=== PATIENT | male | born 1950 | race Caucasian/White ===

== ENCOUNTER 2017-10-24 13:51 | Inpatient (IN) | END 2017-11-14 17:00 | disposition home health service (06) | DRG 233 ==

== ENCOUNTER 2017-12-24 08:52 | Emergency (ER) | END 2017-12-24 10:50 | disposition home or self-care (01) ==

== ENCOUNTER 2018-05-29 23:37 | Observation (INO) | END 2018-05-30 20:20 | disposition home or self-care (01) ==

== ENCOUNTER 2018-06-26 19:46 | Observation (INO) | payer OTHER ==
[~2018-06-26] VITALS: Ht 182.9 cm; Wt 78.6 kg
[~2018-06-26 19:46] MED LIST: ASPI-831 PO; ATOR20TA38 PO; FURO40TA4 PO; LEVO200T6 PO; LISI-471 PO; METO-448 PO; OMEP20CA16 PO; TAMS0.4C2 PO
[2018-06-26 20:35] VITALS: Ht 182.9 cm; Wt 78.6 kg
--- NOTE | 2018-06-27 03:02 | ERD ---
ER Documentation Chief Complaint Chief Complaint incision site drainage w/serosanguinous fluid HPI This is a 67-year-old male comes in with complaints of serosanguineous fluid drainage from previous surgical site. Was seen here previously for same last month and a questionable carcinomatosis. Complains of some mild pain at the site. No nausea no vomiting or chills. No other current complaints. ROS All systems reviewed and are negative except as per history of present illness. Medications Home Meds Active Scripts Furosemide* (Furosemide*) 40 Mg Tablet, 40 MG PO DAILY, #30 TAB Prov:JOSTIN GALLARDO TOWER ATTENDANT 11/14/17 Aspirin (Aspirin) 81 Mg Chew, 81 MG PO DAILY, #30 TAB Prov:JOSTIN GALLARDO TOWER ATTENDANT 11/14/17 Metoprolol Tartrate* (Lopressor*) 25 Mg Tab, 25 MG PO BID, #60 TAB Prov:JOSTIN GALLARDO TOWER ATTENDANT 11/14/17 Reported Medications Atorvastatin Calcium* (Atorvastatin Calcium*) 20 Mg Tablet, 20 MG PO QHS, #30 TAB 05/29/18 Lisinopril* (Lisinopril*) 20 Mg Tablet, 20 MG PO DAILY, #30 TAB 05/29/18 Levothyroxine Sodium* (Levothyroxine Sodium*) 200 Mcg Tablet, 200 MCG PO BEFORE BREAKFAST, #30 TAB 05/29/18 Discontinued Reported Medications Omeprazole* (Omeprazole*) 20 Mg Capsule.dr, 20 MG PO DAILY, #30 CAP 05/29/18 Tamsulosin Hcl* (Tamsulosin Hcl*) 0.4 Mg Cap.er.24h, 0.4 MG PO HS, CAP 05/29/18 Allergies Allergies: Coded Allergies: No Known Allergies (Verified Allergy, Unknown, 06/26/18) PMhx/Soc History of Surgery: Yes (Cholesystectomy 01/19 & Open heart Surgery 11/19) Anesthesia Reaction: No Hx Neurological Disorder: No Hx Respiratory Disorders: No Hx Cardiac Disorders: Yes (CAD, HTN, DC) Hx Psychiatric Problems: No Hx Miscellaneous Medical Probl: No Hx Alcohol Use: No Hx Substance Use: No Hx Tobacco Use: No Smoking Status: Never smoker Physical Exam Vitals Vital Signs Date Temp Pulse Resp B/P (MAP) Pulse Ox O2 O2 Flow FiO2 Time Delivery Rate 06/26/18 98.2 62 18 181/89 100 20:35 (119) Physical Exam Const: No acute distress Head: Atraumatic Eyes: Normal Conjunctiva ENT: Normal External Ears, Nose and Mouth. Neck: Full range of motion. No meningismus. Resp: Clear to auscultation bilaterally Cardio: Regular rate and rhythm, no murmurs Abd: Soft, non tender, non distended. Normal bowel sounds Skin: No petechiae or rashes Back: No midline or flank tenderness Ext: No cyanosis, or edema Neur: Awake and alert Psych: Normal Mood and Affect Procedures/MDM Medical decision makin-year-old male who looks to be extension of previous carcinomatosis. Patient will be admitted. Consult put into anu Wheeler ed to hospitalist. Departure Diagnosis: Primary Impression: Postoperative complication Surgical complication system/body Area: skin Surgical complication type: unspecified Procedure type: non-dermatologic Qualified Codes: L76.82 - O ther postprocedural complications of skin and subcutaneous tissue Condition: Serious JANEY BISHOP Jun 27, 2018 03:02
--- NOTE | 2018-06-27 04:35 | HP ---
Date/Time of Note Date/Time of Note DATE: 06/27/18 TIME: 04:28 Assessment/Plan VTE Prophylaxis SCD applied (from Nsg): Yes Pharmacological prophylaxis: NA/contraindicated Pharm contraindication: low risk/ambulating Lines/Catheters IV Catheter Type (from Nrsg): Saline Lock Assessment/Plan Hospital Course This is a 67-year-old male being admitted to the [facility] floor for: #1 postop drainage from surgical site: Patient has serosanguineous drainage from previous cholecystostomy drain site. Though I do not see any gallstones at the current time patient does report that he may have noted some. We will keep the patient n.p.o. at the current time, IV hydration with normal saline, surgical consult is Campbell been placed by the ED with Dr. Bauer. #[address] scan: Peritoneal carcinomatosis with slight increase from 05/29/2018.Infiltrating process involving the muscles of the right lateral abdominal wall with increased soft tissue stranding in the overlying subcutaneous fat. This may represent extension of peritoneal disease into the overlying muscle. Muscle changes could also be secondary to a very recent image- guided percutaneous biopsy of the peroneal disease. Punctate nonobstructing left renal stones. Very small focus of gas in the inferior stephanie hepatis, new. This could follow a very recent percutaneous biopsy, represent volume averaging artifact from tethering of the wall of the hepatic flexure which is immediately adjacent or minimal pneumobilia as the gas collection is slightly inferior to cholecystectomy clips. At the current time we will keep the patient n.p.o., prophylactic antibiotics, general surgery consultation with Dr. Bauer is Campbell been placed. #3 multivessel CAD. Status post CABG x3, CAO to LAD, SVG to PDA, SVG to second obtuse marginal artery, endoscopic vein harvesting, and epiaortic scanning of the ascending aorta on 10/25/2017. #4 history of gallbladder disease/gallstones: Patient is status post percu taneous cholecystostomy as well as cholecystectomy. #5 dyslipidemia.: Continue statin #6 hypothyroidism: We will check TSH, resume levothyroxine #7: Hypertension resume patient's home medications #8 DVT GI prophylaxis: SCDs, no GI prophylaxis indicated further treatment strategy will be implemented as per the clinical course. Result Diagram: 06/27/18 0309 06/27/18 0309 Results 24hrs Laboratory Tests Test 06/27/18 03:09 White Blood Count 7.8 Red Blood Count 4.47 L Hemoglobin 10.8 L Hematocrit 36.5 L Mean Corpuscular Volume 81.7 L Mean Corpuscular Hemoglobin 24.2 L Mean Corpuscular Hemoglobin Concent 29.6 L Red Cell Distribution Width 17.1 H Platelet Count 311 Mean Platelet Volume 9.7 Immature Granulocytes % 0.400 Neutrophils % 58.7 Lymphocytes % 30.4 Monocytes % 7.3 Eosinophils % 2.4 Basophils % 0.8 Nucleated Red Blood Cells % 0.0 Immature Granulocytes # 0.030 Neutrophils # 4.6 Lymphocytes # 2.4 Monocytes # 0.6 Eosinophils # 0.2 Basophils # 0.1 Nucleated Red Blood Cells # 0.0 Prothrombin Time 14.2 Prothrombin Time Ratio 1.1 INR International Normalized Ratio 1.09 Activated Partial Thromboplast Time 32.6 Sodium Level 146 H Potassium Level 4.1 Chloride Level 108 Carbon Dioxide Level 26 Anion Gap 12 Blood Urea Nitrogen 20 Creatinine 1.13 Est Glomerular Filtrat Rate mL/min > 60 Glucose Level 103 Calcium Level 9.4 Total Bilirubin 0.1 L Direct Bilirubin 0.00 Indirect Bilirubin 0.1 Aspartate Amino Transf (AST/SGOT) 22 Alanine Aminotransferase (ALT/SGPT) 11 L Alkaline Phosphatase 170 H Total Protein 8.1 Albumin 4.2 Globulin 3.90 H Albumin/Globulin Ratio 1.07 Lipase 187 HPI/ROS Admit Date/Time Admit Date/Time Hx of Present Illness Chief complaint: Drainage coming out of previous cholecystostomy drain site This is a 67-year-old male status post percutaneous cholecystostomy tube and cholecystectomy presenting with 1 day of drainage from the previous cholecystostomy drain site. Patient reports that over the last 1 day he has noticed abdominal pain of the right abdomen near the site of his previous cholecystostomy drain site. He reports serosanguineous drainage and possible stones as well. He does have tenderness at the surgical site. Denies any fevers chills or nausea or vomiting. Allergies: NKDA Medications: See AUG ROS Const: As per HPI Eyes : No pain discharge or redness or change in visual acuity ENT: No pain, sore throat, congestion, congestion, dysphagia or discharge Respiratory: No shortness of breath, cough, sputum, wheezing, or pleuritic pain Cardiovascular: No chest pain, palpitation, PND, or edema GI : As per HPI Genitourinary: No dysuria, no hematuria Musculoskeletal: No joint pain, back pain, neck pain, restricted range of motion in neck or joints Skin: No rash, bruising or hives Neuro: No headache, dizziness, syncope, seizure, focal weakness Endocrine: No polyuria, polydipsia, temperature intolerance Psych: No hallucination, depression, anxiety or suicidal ideation PMH/Family/Social Past Medical History Coronary artery disease status post CABG, hyperlipidemia, hypertension, hypothyroidism, BPH, GERD Coded Allergies: No Known Allergies (Verified Allergy, Unknown, 06/26/18) Past Surgical History CABG, cholecystectomy, percutaneous cholecystostomy insertion/removal, Past Surgical Hx: other Family History Significant Family History: no pertinent family hx, other Social History Alcohol Use: none Smoking Status: Former smoker Drug Use: none Exam/Review of Systems Vital Signs Vitals Vital Signs Date Temp Pulse Resp B/P (MAP) Pulse Ox O2 O2 Flow FiO2 Time Delivery Rate 06/27/18 56 151/83 97 Room Air 03:07 (105) 06/27/18 20 01:00 06/26/18 98.2 20:35 Exam Exam General: Patient is a pleasant male currently lying in bed in no acute distress The patient is alert oriented -3 lying comfortably in bed. HEENT: Atraumatic, normocephalic. The pupils are equal, round and reactive. Extraocular motor are intact Neck: Supple with full range of motion. No rigidity or meningismus Chest: Surgical scars present from CABG Lungs: Clear to auscultation bilaterally no crackles rales or wheezing Heart: Normal S1-S2, Regular rhythm and rate. No murmur, S3, or S4 Abdomen: Soft, mild tenderness palpation of the right lower abdomen catheter drainage site. There appears to be a scant amount of serosanguineous liquid draining. Neurologic: Normal mental status, speech normal, cranial nerves II through XII are intact, motor and sensory are intact, no focal weakness Additional Comments PROCEDURE: CT abdomen and pelvis without contrast. CLINICAL INDICATION: 67-year-old male with abdominal pain. TECHNIQUE: CT scan of the abdomen and pelvis without contrast was performed on a multi-slice CT scanner utilizing axial imaging from the lung bases through the pubis symphysis. One or more the following does reduction techniques were utilized: Automated exposure control, adjustment of the mA/ or kV according to patient's size, or use of iterative reconstruction technique. Sagittal and coronal reformatted images were made. DICOM images are available for review. The CTDIvol is 9.42 mGy and the DLP is 604.89 mGycm. COMPARISON: CT abdomen pelvis 05/29/2018. FINDINGS: CT abdomen Visualized lung bases: Dependent changes posterior lower lobes. No pleural effusion. No significant pericardial effusion. Liver: Limited evaluation without IV contrast. No gross lesion. Gallbladder and bile ducts: Previous cholecystectomy. Small focus of gas identified in the inferior stephanie hepatis (series 3 image 55, series 601 image 41). No biliary ductal dilatation. Spleen: Normal appearance. Pancreas: Normal appearance. No ductal dilatation. No mass. No peripancreatic stranding. Adrenal glands: Normal appearance. Kidneys: No hydronephrosis. 2 mm nonobstructing stone upper pole left kidney. 1.5 mm nonobstructing stone lower pole left kidney. No right renal calcifications. Vasculature: No abdominal aortic aneurysm. Calcified plaque present. Negative IVC. Lymph nodes: No adenopathy. GI: No evidence of obstruction or bowel wall thickening. Peritoneal cavity: . Panic fluid that was present on the previous exam has cleared. Multiple soft tissue masses are present with in the omentum and the mesenteric fat of the right abdomen. There is also abnormal soft tissue stranding in the fat of the lateral right abdomen. Abdominal wall: Asymmetric thickening of the right anterolateral mid abdominal muscles with low attenuation changes infiltrating the planes between the muscles and also developing in the external oblique, transversalis and internal oblique muscles. Abnormal soft tissue stranding in the subcutaneous fat of the lateral right abdomen. CT pelvis GI: Negative terminal ileum. Negative appendix. Negative sigmoid colon. Negative rectum. : Genitourinary structures are unremarkable. Peritoneal cavity: Minimal free fluid posterior inferior right pelvis, new. Probable scarring at the level left inguinal canal, present on the prior exam. Peritoneal nodule identified in the midline of the pelvis slightly to the right of midline (series 3 image 119), new. Lymph nodes: No adenopathy. Osseous structures: No lytic or blastic lesions. Multilevel thoracic and lumbar spondylosis. Sternal wire sutures. IMPRESSION: 1. Peritoneal carcinomatosis with slight increase from 05/29/2018. 2. Infiltrating process involving the muscles of the right lateral abdominal wall with increased soft tissue stranding in the overlying subcutaneous fat. This may represent extension of peritoneal disease into the overlying muscle. Muscle changes could also be secondary to a very recent image-guided per cutaneous biopsy of the peroneal disease. 3. Punctate nonobstructing left renal stones. 4. Very small focus of gas in the inferior stephanie hepatis, new. This could follow a very recent percutaneous biopsy, represent volume averaging artifact from tethering of the wall of the hepatic flexure which is immediately adjacent or minimal pneumobilia as the gas collection is slightly inferior to cholecyst ectomy clips. RPTAT: HLRS Physician Grant Date Time Electronically viewed and signed by Physician Grant on 06/27/2018 01:13 RS/ CC: JANEY BISHOP [id number] NIRAV PHILLIPS Jun 27, 2018 04:35
[2018-06-27] MEDS ORDERED: morphine 2 MG INJ IV PRN (05:00)
[2018-06-27] MEDS ORDERED: DOCUSATE SODIUM 100 MG CAP PO PRN (05:00)
[2018-06-27] MEDS ORDERED: ONDANSETRON 4 MG INJ IV PRN (05:00)
[2018-06-27] MEDS ORDERED: BISACODYL (EC) 5 MG TAB PO PRN (05:00)
[2018-06-27] MEDS ORDERED: ACETAMINOPHEN 325 MG TAB PO PRN (05:00)
[2018-06-27] MEDS ORDERED: NACL 0.9% 3 ML SYG IV SCH (05:00)
[2018-06-27] MEDS: SOD CHLORIDE 0.9% 1,000 ML IV SCH ×2 (05:21→17:32)
[2018-06-27] MEDS: PIPER-TAZO 3.375 GM IV (PMX) 100 ML IVPB SCH ×3 (06:33→17:32)
[2018-06-27 08:13] VITALS: BP 144/93; PULSE 18; RESP 18
--- NOTE | 2018-06-27 10:08 | CONS ---
Date/Time of Note Date/Time of Note DATE: 06/27/18 TIME: 10:03 Assessment/Plan Assessment/Plan Assessment/Plan The patient's issue of drainage can be handled with warm compresses, and dressing care. Plan: Oncologic consultation for further recommendations. Result Diagram: 06/27/18 0309 06/27/18 0309 Results 24hrs Laboratory Tests Test 06/27/18 03:09 White Blood Count 7.8 Red Blood Count 4.47 L Hemoglobin 10.8 L Hematocrit 36.5 L Mean Corpuscular Volume 81.7 L Mean Corpuscular Hemoglobin 24.2 L Mean Corpuscular Hemoglobin Concent 29.6 L Red Cell Distribution Width 17.1 H Platelet Count 311 Mean Platelet Volume 9.7 Immature Granulocytes % 0.400 Neutrophils % 58.7 Lymphocytes % 30.4 Monocytes % 7.3 Eosinophils % 2.4 Basophils % 0.8 Nucleated Red Blood Cells % 0.0 Immature Granulocytes # 0.030 Neutrophils # 4.6 Lymphocytes # 2.4 Monocytes # 0.6 Eosinophils # 0.2 Basophils # 0.1 Nucleated Red Blood Cells # 0.0 Prothrombin Time 14.2 Prothrombin Time Ratio 1.1 INR International Normalized Ratio 1.09 Activated Partial Thromboplast Time 32.6 Sodium Level 146 H Potassium Level 4.1 Chloride Level 108 Carbon Dioxide Level 26 Anion Gap 12 Blood Urea Nitrogen 20 Creatinine 1.13 Est Glomerular Filtrat Rate mL/min > 60 Glucose Level 103 Calcium Level 9.4 Total Bilirubin 0.1 L Direct Bilirubin 0.00 Indirect Bilirubin 0.1 Aspartate Amino Transf (AST/SGOT) 22 Alanine Aminotransferase (ALT/SGPT) 11 L Alkaline Phosphatase 170 H Total Protein 8.1 Albumin 4.2 Globulin 3.90 H Albumin/Globulin Ratio 1.07 Lipase 187 Consultation Date/Type/Reason Admit Date/Time Date of Consultation: Jun 27, 2018 Type of Consult General surgery Reason for Consultation Induration and drainage from laparoscopic port site. CT scan indicates worsened carcinomatosis Hx of Present Illness The patient is a 67-year-old male who underwent a laparoscopic cholecystectomy on November 2017. Since that time he has had localized wound care issues including drainage as well as some drainage of stones through the drain site. He was seen last month for wound drainage and was found to carcinomatosis. The etiology is unclear. Sequently he did well and went to [place] for vacation. The day before yesterday started to develop drainage through the right lateral port site and drove himself directly to the hospital. Here in the hospital induration and drainage was noted at the lateral port site. CT scan showed carcinomatosis which was worsened. The patient has full p.o. tolerance and normal bowel function. Constitutional: no complaints Eyes: no complaints ENT: no complaints Respiratory: no complaints Cardiovascular: no complaints Gastrointestinal: pain, decreased appetite Genitourinary: no complaints Musculoskeletal: no complaints Skin: no complaints Neurologic: no complaints Endocrine: no complaints Psychological: no complaints Past Medical History Medical History: gallstones (Cystectomy) Medications Current Medications Sodium Chloride 1,000 ml @ 80 mls/hr [id number] IV Last administered on 06/27/18at 05:21; Admin Dose 80 MLS/HR; Start 06/27/18 at 04:35 IV Flush (NS 3 ml) 3 ml PER PROTOCOL IV ; Start 06/27/18 at 05:00 Ondansetron HCl (Zofran Inj) 4 mg Q6H PRN IV NAUSEA; Start 06/27/18 at 05:00 Acetaminophen (Tylenol Tab) 650 mg Q6H PRN PO FEVER GREATER THAN 100.6; Start 06/27/18 at 05:00 Morphine Sulfate (morphine) 2 mg Q4H PRN IV PAIN LEVEL 6-10; Start 06/27/18 at 05:00 Docusate Sodium (Colace) 100 mg Q12H PRN PO CONSTIPATION; Start 06/27/18 at 05:00 Bisacodyl (Dulcolax) 5 mg DAILY PRN PO CONSTIPATION; Start 06/27/18 at 05:00 Piperacillin Sod/ Tazobactam Sod 100 ml @ 200 mls/hr Q6 IVPB Last administered on 06/27/18at 06:33; Admin Dose 200 MLS/HR; Start 06/27/18 at 06:00 Allergies: Coded Allergies: No Known Allergies (Verified Allergy, Unknown, 06/26/18) Past Surgical History Past Surgical Hx: other Family History Significant Family History: no pertinent family hx Social History Alcohol Use: none Smoking Status: Former smoker Drug Use: none Exam/Review of Systems Vital Signs Vitals Vital Signs Date Temp Pulse Resp B/P (MAP) Pulse Ox O2 O2 Flow FiO2 Time Delivery Rate 06/27/18 98.0 18 18 144/93 100 Room Air 08:13 (110) Exam Constitutional: alert, oriented Psych: no complaints Head: normocephalic ENMT: nl external ears & nose Neck: supple Respiratory: clear to auscultation Cardiovascular: regular rate and rhythm Gastrointestinal: soft, distended, other (There is a 3 cm area of induration at the lateral scopic port site with signs of recent drainage. There is nonspecific nominal fullness) Genitourinary - Male: nl penis Extremities: normal pulses Neurological: INDUSTRIAL TRAINER II-XII intact Medications Medications Current Medications Sodium Chloride 1,000 ml @ 80 mls/hr [id number] IV Last administered on 06/27/18at 05:21; Admin Dose 80 MLS/HR; Start 06/27/18 at 04:35 IV Flush (NS 3 ml) 3 ml PER PROTOCOL IV ; Start 06/27/18 at 05:00 Ondansetron HCl (Zofran Inj) 4 mg Q6H PRN IV NAUSEA; Start 06/27/18 at 05:00 Acetaminophen (Tylenol Tab) 650 mg Q6H PRN PO FEVER GREATER THAN 100.6; Start 06/27/18 at 05:00 Morphine Sulfate (morphine) 2 mg Q4H PRN IV PAIN LEVEL 6-10; Start 06/27/18 at 05:00 Docusate Sodium (Colace) 100 mg Q12H PRN PO CONSTIPATION; Start 06/27/18 at 05:00 Bisacodyl (Dulcolax) 5 mg DAILY PRN PO CONSTIPATION; Start 06/27/18 at 05:00 Piperacillin Sod/ Tazobactam Sod 100 ml @ 200 mls/hr Q6 IVPB Last administered on 06/27/18at 06:33; Admin Dose 200 MLS/HR; Start 06/27/18 at 06:00 MILANA SALAMANCA MD Jun 27, 2018 10:08
[2018-06-27] MEDS ORDERED: LIDOCAINE 1% (MPF) 5 ML VIAL ONE (13:26)
[2018-06-27 14:58] VITALS: BP 154/77; PULSE 78; RESP 20
[2018-06-27 15:03] VITALS: BP 154/77; PULSE 52; RESP 18
--- NOTE | 2018-06-27 15:04 | NUR ---
Patient came back from Radiology S/P Right upper quadrant biopsy as per report. Patient noted with bandaid to right upper quadrant of abdomen clean, dry and intact with gauze also intact beside the biopsy site. Fall precaution. Patient reoriented back to floor. call light kept in reach.
--- NOTE | 2018-06-27 19:48 | NUR ---
END OF SHIFT REPORT: Patient denied pain throughout shift. Patient went down for CT-guided biopsy; patient has bandaid on boipsy site that is dry and intact. Patient has lower right abdominal wound that appears to have a large rounded lump around site draining yellowish liquid with no order; I order k-pad according to Juancarlos TRAN order for warm compress TID. Patient had no other events noted and tolerating regular diet. Patient voiding in urinal with no difficulty.
[2018-06-27 20:08] VITALS: BP 133/73; PULSE 65; RESP 16
[2018-06-28] MEDS: PIPER-TAZO 3.375 GM IV (PMX) 100 ML IVPB SCH ×5 (01:38→23:31)
[2018-06-28 02:04] VITALS: BP 135/67; PULSE 63; RESP 18
[2018-06-28] MEDS: SOD CHLORIDE 0.9% 1,000 ML IV SCH ×2 (06:16→22:37)
--- NOTE | 2018-06-28 06:33 | NUR ---
RN EOSS NOTES: Patient has slept well overnight. Denies any pain nor discomfort from abdominal wound. Biopsy site to RUQ of abdomen has a band-aid, and abdominal wound has a gauze dressing which remains C/D/I. Afebrile, ambulates with steady gait in his room this shift. Heating pad applied once over abdominal wound last night with good effect for comfort. Awaiting consult with Dr. Rome. Needs assisted.
[2018-06-28 07:21] VITALS: BP 143/62; PULSE 73; RESP 19
--- NOTE | 2018-06-28 09:17 | CONS ---
Assessment/Plan Assessment/Plan Assessment/Plan (Daily) 67 yo male who 4 months ago underwent cholecystectomy which was complicated by infection. Pt then underwent percutaneous cholecystostomy tube and now presents with drainage from that site. 06/26/[address] A/P done which revealed peritoneal carcinomatosis with slight increase from 05/29/2018. We have been consulted given concern for underlying malignancy. Pt has since undergone a biopsy of a right flank mass. PT has since been seen by surgery who stated the drainage could be managed conserva tively. PT is currently on Zosyn. #Peritoneal carcinomatosis -CT revealed this was slightly increased from 05/29/2018 as well as an infiltrating process involving the muscles of the right lateral abdominal wall. The mass has since been biopsied. Will follow up results -CA 19-9 and CEA have been ordered as well #post op drainage from cholecystostomy site -conservative management per surgery #CAD -s/p CABG -continue current meds #Hypothyroidism -continue Lt4 Consultation Date/Type/Reason Admit Date/Time Jun 27, 2018 at 02:25 Initial Consult Date 06/27/18 Type of Consult oncology Reason for Consultation peritoneal carcinomatosis Requesting Provider: GILBERT WEIR Date/Time of Note DATE: 06/28/18 TIME: 09:12 24 HR Interval Summary Free Text/Dictation 67 yo male who 4 months ago underwent cholecystectomy which was complicated by infection. Pt then underwent percutaneous cholecystostomy tube and now presents with drainage from that site. 06/26/[address] A/P done which revealed peritoneal carcinomatosis with slight increase from 05/29/2018. We have been consulted given concern for underlying malignancy. Pt has since undergone a biopsy of a right flank mass. PT has since been seen by surgery who stated the drainage could be managed conservatively. PT is currently on Zosyn. Exam/Review of Systems Exam Vitals Vital Signs Date Temp Pulse Resp B/P (MAP) Pulse Ox O2 O2 Flow FiO2 Time Delivery Rate 06/28/18 98.2 73 19 143/62 96 07:21 (89) 06/27/18 Room Air 15:03 Intake and Output 06/27/18 06/27/18 06/28/18 1515:00 23:00 07:00 IntakeIntake Total 100 ml 1180 ml 2030 ml OutputOutput Total 300 ml 1200 ml BalanceBalance -200 ml 1180 ml 830 ml Constitutional: alert, oriented Psych: anxiety, depression Head: normocephalic Eyes: nl conjunctiva ENMT: nl external ears & nose Neck: supple Respiratory: clear to auscultation Cardiovascular: regular rate and rhythm Gastrointestinal: soft Musculoskeletal: nl extremities to inspection Extremities: normal pulses Results Result Diagram: 06/28/18 0433 06/28/18 0433 Results 24hrs Laboratory Tests Test 06/28/18 04:33 White Blood Count 7.3 Red Blood Count 4.16 L Hemoglobin 10.1 L Hematocrit 34.0 L Mean Corpuscular Volume 81.7 L Mean Corpuscular Hemoglobin 24.3 L Mean Corpuscular Hemoglobin Concent 29.7 L Red Cell Distribution Width 17.3 H Platelet Count 302 Mean Platelet Volume 10.5 H Immature Granulocytes % 0.400 Neutrophils % 64.1 Lymphocytes % 25.0 Monocytes % 7.4 Eosinophils % 2.3 Basophils % 0.8 Nucleated Red Blood Cells % 0.0 Immature Granulocytes # 0.030 Neutrophils # 4.6 Lymphocytes # 1.8 Monocytes # 0.5 Eosinophils # 0.2 Basophils # 0.1 Nucleated Red Blood Cells # 0.0 Sodium Level 145 H Potassium Level 4.7 Chloride Level 109 Carbon Dioxide Level 28 Anion Gap 8 Blood Urea Nitrogen 18 Creatinine 1.26 H Est Glomerular Filtrat Rate mL/min 57 L Glucose Level 112 Calcium Level 9.1 Magnesium Level 2.2 Total Bilirubin 0.1 L Direct Bilirubin 0.00 Indirect Bilirubin 0.1 Aspartate Amino Transf (AST/SGOT) 17 Alanine Aminotransferase (ALT/SGPT) 17 Alkaline Phosphatase 139 H Total Protein 6.5 # Albumin 3.4 Globulin 3.10 Albumin/Globulin Ratio 1.09 TITUS OBRIEN M.D. Jun 28, 2018 09:17
--- NOTE | 2018-06-28 13:41 | QN ---
Documentation Comment Patient feels well overall The indurated port site in the right abdomen is less firm and erythematous and still is draining slightly CT-guided biopsy is thus far nondiagnostic for malignancy. Awaiting further staining and evaluation MILANA SALAMANCA MD Jun 28, 2018 13:41
--- NOTE | 2018-06-28 19:18 | NUR ---
EOSS; PATIENT WITH NO SIGNIFICANT CHANGE OF CONDITION DURING THE SHIFT. NO ABDOMINAL DRAINAGE NOTED. AFEBRILE, VITAL SIGNS STABLE. CONTINUED ON ANTIBIOTICS OF ZOSYN. KEPT CLEAN DRY AND COMFORTABLE. NEEDS ATTENDED.
[2018-06-28 19:30] VITALS: BP 120/87; PULSE 64; RESP 18
[2018-06-29 02:30] VITALS: BP 131/72; PULSE 62; RESP 18
--- NOTE | 2018-06-29 05:37 | QN ---
Documentation Comment No significant change Awaiting final pathology report May ultimately need open biopsy MILANA SALAMANCA MD Jun 29, 2018 05:37
[2018-06-29] MEDS: PIPER-TAZO 3.375 GM IV (PMX) 100 ML IVPB SCH (05:41)
[2018-06-29] MEDS: SOD CHLORIDE 0.9% 1,000 ML IV SCH ×2 (06:35→11:45)
--- NOTE | 2018-06-29 06:50 | NUR ---
RN EOSS NOTES: Patient currently on IV Zosyn antibiotic as scheduled/ordered. Ordered IV fluid NS infusion maintained as per MD's order. V/S stable overnight and afebrile. Denies any pain nor gastric discomfort. Awaiting biopsy result. Needs assisted.
[2018-06-29 08:09] VITALS: BP 147/76; PULSE 60; RESP 18
--- NOTE | 2018-06-29 11:01 | PDOCDIS ---
Discharge Instructions DIAGNOSIS Discharge Diagnosis Irritation of cholecystostomy drain site CONDITION [id number] Patient Condition: [id number] Good HOME CARE INSTRUCTIONS: Alccg7Re Diet Instructions: [id number] Regular ACTIVITY: [id number] Activity Restrictions: Aalxw2g No Restrictions FOLLOW UP/APPOINTMENTS Follow-up Plan 1. For inflammation and drainage of your drain site, apply a warm damp washcloth. You can also take [id number]-ghb-[id number] tylenol and ibuprofen. 2. See your primary care doctor in 1-2 weeks. 3. If you develop fevers and sharp, deep, right upper quadrant pain not responsive to ibuprofen return to the emergency room. CHAZ BRIGHT MD Jun 29, 2018 11:01
--- NOTE | 2018-06-29 13:00 | NUR ---
PATIENT TOLERATED DIET, NO NAUSEA/ NO VOMITING NOTED. NO DRAINAGE NOTED AT THIS TIME.
--- NOTE | 2018-06-29 15:15 | NUR ---
CALLED DR SALAMANCA AND MADE AWARE THAT DR BRIGHT ORDERED DISC HARGE FOR THE PATIENT AND HE SAID THAT HE CAN GO HOME.
[2018-06-29 15:18] VITALS: BP 165/77; PULSE 60; RESP 15
--- NOTE | 2018-06-29 16:07 | DS ---
Date/Time of Note Date/Time of Note DATE: 06/29/18 TIME: 16:03 Discharge Summary Admission/Discharge Info Admit Date/Time Jun 27, 2018 at 02:25 Discharge Date/Time Jun 29, 2017 Discharge Diagnosis Irritation of cholecystostomy drain site Patient Condition: Good Consults Dr. Bauer, general surgery Dr. Rome, oncology Hx of Present Illness Chief complaint: Drainage coming out of previous cholecystostomy drain site This is a 67-year-old male status post percutaneous cholecystostomy tube and cholecystectomy presenting with 1 day of drainage from the previous cholecystostomy drain site. Patient reports that over the last 1 day he has noticed abdominal pain of the right abdomen near the site of his previous cholecystostomy drain site. He reports serosanguineous drainage and possible stones as well. He does have tenderness at the surgical site. Denies any fevers chills or nausea or vomiting. Allergies: NKDA Hospital Course The patient had a CT which appeared to show peritoneal carcinomatosis, slightly increased from a month ago. A CT guided biopsy was done of one of these lesions but it just showed fibrous change, no malignant cells. Dr. Bauer was consulted from surgery and just recommended warm compresses on the drainage site. Soon after discharge the drainage stopped on its own. The patient was reassured and discharged, no antibiotics needed. Home Meds Active Scripts Furosemide* (Furosemide*) 40 Mg Tablet, 40 MG PO DAILY, #30 TAB Prov:JOSTIN GALLARDO [employer] 11/14/17 Aspirin (Aspirin) 81 Mg Chew, 81 MG PO DAILY, #30 TAB Prov:JOSTIN GALLARDO [employer] 11/14/17 Metoprolol Tartrate* (Lopressor*) 25 Mg Tab, 25 MG PO BID, #60 TAB Prov:JOSTIN GALLARDO [employer] 11/14/17 Reported Medications Atorvastatin Calcium* (Atorvastatin Calcium*) 20 Mg Tablet, 20 MG PO QHS, #30 TAB 05/29/18 Lisinopril* (Lisinopril*) 20 Mg Tablet, 20 MG PO DAILY, #30 TAB 05/29/18 Levothyroxine Sodium* (Levothyroxine Sodium*) 200 Mcg Tablet, 200 MCG PO BEFORE BREAKFAST, #30 TAB 05/29/18 Discontinued Reported Medications Omeprazole* (Omeprazole*) 20 Mg Capsule., 20 MG PO DAILY, #30 CAP 05/29/18 Tamsulosin Hcl* (Tamsulosin Hcl*) 0.4 Mg Cap.er.24h, 0.4 MG PO HS, CAP 05/29/18 Follow-up Plan 1. For inflammation and drainage of your drain site, apply a warm damp washcloth. You can also take euzq-xrx-soxhtg tylenol and ibuprofen. 2. See your primary care doctor in 1-2 weeks. 3. If you develop fevers and sharp, deep, right upper quadrant pain not responsive to ibuprofen return to the emergency room. Primary Care Provider Justyna Wadsworth Time spent on discharge: > 30 minutes CHAZ BRIGHT MD Jun 29, 2018 16:07
--- NOTE | 2018-06-29 16:20 | CONS ---
Assessment/Plan Assessment/Plan Assessment/Plan (Daily) 67 yo male who 4 months ago underwent cholecystectomy which was complicated by infection. Pt then underwent percutaneous cholecystostomy tube and now presents with drainage from that site. 06/26/[address] A/P done which revealed peritoneal carcinomatosis with slight increase from 05/29/2018. We have been consulted given concern for underlying malignancy. Pt has since undergone a biopsy of a right flank mass. PT has since been seen by surgery who stated the drainage could be managed conserva tively. PT is currently on Zosyn. #Peritoneal carcinomatosis -CT revealed this was slightly increased from 05/29/2018 as well as an infiltrating process involving the muscles of the right lateral abdominal wall. The mass has since been biopsied. Will follow up results -CA 19-9 and CEA have been ordered as well #post op drainage from cholecystostomy site -conservative management per surgery #CAD -s/p CABG -continue current meds #Hypothyroidism -continue Lt4 # Acute Kidney Injury- CR 1.46 - Per PMD Patient is seen in collaboration with Dr Rome Consultation Date/Type/Reason Admit Date/Time Jun 27, 2018 at 02:25 Initial Consult Date 06/27/18 Type of Consult oncology Reason for Consultation peritoneal carcinomatosis Requesting Provider: GILBERT WEIR Date/Time of Note DATE: 06/29/18 TIME: 16:18 24 HR Interval Summary Free Text/Dictation Feels better will FU with Dr Rome x 1 week when discharged no new events reported overnight pr staff Constitutional: improved Detailed Summary Eyes: no complaints ENT: no complaints Respiratory: no complaints Cardiovascular: no complaints Gastrointestinal: pain (manageable - ) Genitourinary: no complaints Musculoskeletal: no complaints Skin: no complaints Neurologic: no complaints Endocrine: no complaints Exam/Review of Systems Exam Vitals Vital Signs Date Temp Pulse Resp B/P (MAP) Pulse Ox O2 O2 Flow FiO2 Time Delivery Rate 06/29/18 98.1 60 15 165/77 99 Room Air 15:18 (106) Intake and Output 06/28/18 06/28/18 06/29/18 1515:00 23:00 07:00 IntakeIntake Total 320 ml 2220 ml 840 ml OutputOutput Total 1120 ml 400 ml BalanceBalance 320 ml 1100 ml 440 ml Constitutional: alert, well developed Psych: nl mood/affect Head: atraumatic Eyes: EOMI, nl lids, nl sclera ENMT: nl external ears & nose Neck: non-tender Respiratory: normal air movement, diminished breath sounds Cardiovascular: nl pulses, other (s1s2) Gastrointestinal: soft, tender (diffuse) Extremities: normal pulses Neurological: nl mental status, nl speech Skin: nl turgor Results Result Diagram: 06/28/1843206/28/18432 Medications Medication Current Medications Sodium Chloride 1,000 ml @ 80 mls/hr [id number] IV Last administered on 06/29/18at 11:45; Admin Dose 80 MLS/HR; Start 06/27/18 at 04:35 IV Flush (NS 3 ml) 3 ml PER PROTOCOL IV ; Start 06/27/18 at 05:00 Ondansetron HCl (Zofran Inj) 4 mg Q6H PRN IV NAUSEA; Start 06/27/18 at 05:00 Acetaminophen (Tylenol Tab) 650 mg Q6H PRN PO FEVER GREATER THAN 100.6; Start 06/27/18 at 05:00 Morphine Sulfate (morphine) 2 mg Q4H PRN IV PAIN LEVEL 6-10; Start 06/27/18 at 05:00 Docusate Sodium (Colace) 100 mg Q12H PRN PO CONSTIPATION; Start 06/27/18 at 05:00 Bisacodyl (Dulcolax) 5 mg DAILY PRN PO CONSTIPATION; Start 06/27/18 at 05:00 JAQUAN IVORY Jun 29, 2018 16:20
== END 2018-06-29 16:35 | disposition home or self-care (01) ==
LOC: E/R 19:46 → MS1 06-27 02:25
PROVIDERS: ADMIT Family Medicine; ATTEND Internal Medicine
DX: L76.82 Other postprocedural complications of skin and subcutaneous tissue (principal); I25.10 Atherosclerotic heart disease of native coronary artery without angina pectoris; I10 Essential (primary) hypertension; Z95.1 Presence of aortocoronary bypass graft; N17.9 Acute kidney failure, unspecified; E78.5 Hyperlipidemia, unspecified; E03.9 Hypothyroidism, unspecified; Z87.891 Personal history of nicotine dependence; Z79.82 Long term (current) use of aspirin; Y83.8 Other surgical procedures as the cause of abnormal reaction of the patient, or of later complication, without mention of misadventure at the time of the procedure
CPT/HCPCS: 36415; 49180; 74176; 77012; 80053; 82378; 83690; 83735; 85025; 85610; 85730; 86301; 88307; 88313; 99285; G0378; J2543; J7030; 88342